=== PATIENT | male | born 1945 | race Caucasian/White ===

== ENCOUNTER 2017-12-15 08:26 | Day surgery (SDC) | payer MEDICARE, SELFPAY ==
[2017-12-02 08:57] VITALS: BMI 30.8
[2017-12-15] VITALS (16 sets, daily range): BP systolic 98–139; BP diastolic 56–89; PULSE 63–85; RESP 12–18; TEMP 36–36.9; O2SAT 92–98; BMI 30.8
[2017-12-15] MEDS: LACTATED RINGERS 1,000 ML 42 ML IV ×2 (09:06→12:36)
[2017-12-15] MEDS: PREGABALIN 75 MG CAPSULE PO (09:08)
[2017-12-15] MEDS: ACETAMINOPHEN 325 MG TABLET 975 MG PO ×3 (09:08→21:13)
[2017-12-15] MEDS: CELECOXIB 200 MG CAPSULE PO (09:08)
[2017-12-15 09:18] LABS: BUN Creatinine Ratio 22.5 (6-22); Blood Urea Nitrogen 18 mg/dL (9-20); Calcium 9.4 mg/dL (8.4-10.2); Carbon Dioxide 25 mmol/L (22-32); Chloride 104 mmol/L (98-107); Estimated Glomerular Filt Rate > 60.0 mL/min (>60); Glucose 115 mg/dL (80-110); HEMOLYSIS 25 (0-50); Potassium 4.5 mmol/L (3.4-5.1); Sodium 140 mmol/L (137-145)
--- NOTE | 2017-12-15 10:14 | PM.PREOP ---
Pre-operative Note Interval Note Pre-op Check: Yes History & Physical Reviewed by Physician and Yes Exam Performed Changes: No
[2017-12-15] MEDS: CEFAZOLIN 2 GM/100 ML FROZ.PIGGY IV ×2 (11:03→19:38)
--- NOTE | 2017-12-15 11:57 | SUR.OPER ---
Supine on padded OR bed. Pillow under head, arms secured on padded armboards <90 degree abduction. Safety belt across torso. Non-operative leg secured with tape over blanket over lower leg. Operative leg secured in DeMayo/Dante positioner. Foam padded brace at thigh of operative leg.
[2017-12-15] MEDS: BUPIVACAINE 0.25% W/ EPI VIAL 50 ML INJ (12:06)
[2017-12-15] MEDS: BUPIVACAINE LIPOSOME 266 MG/20 ML VIAL INJ (12:07)
[2017-12-15] MEDS: MORPHINE 4 MG/ML INJ SUBCUT (12:10)
--- NOTE | 2017-12-15 13:08 | DI.RAD.S_ITS ---
PROCEDURE: XR KNEE RT 1TO2V INDICATIONS: post op total knee TECHNIQUE: 2 view(s) of the knee acquired. COMPARISON: [facility] [place], CR, XR KNEE 3 VIEWS BILATERAL, 01/26/2017, 10:54. FINDINGS: Bones: Patient is status post knee joint arthroplasty. Hardware components are in expected positions. Visualized bony structures are intact. Soft tissues: Overlying postoperative changes are noted. IMPRESSION: Expected post procedure change for right knee arthroplasty. Dictated by: Emperatriz Young MD, PhD on 12/15/2017 at 13:38 Approved by: Emperatriz Young MD, PhD on 12/15/2017 at 13:38
--- NOTE | 2017-12-15 13:09 | PM.OP.1 ---
Operative Date/Time/Diagnoses Date of procedure: 12/15/17 Time of procedure: 13:00 Pre-op diagnosis: Right knee osteoarthritis Post-op diagnosis: same Procedure & Clinicians Procedure: Right total knee replacement Same procedure as scheduled: Yes Indications: The patient has had progressively worsening right knee pain with radiographic changes consistent with arthritis. Non-operative management has failed and the patient has requested total knee replacement. The risks, benefits and alternatives to surgery were discussed with the patient prior to proceeding. Risks discussed included, but were not limited to, failure to relieve pain, stiffness, infection, nerve damage, deep venous thrombosis, pulmonary embolism, stroke, coma, heart attack, permanent paralysis and , as well as the potential need for eventual revision of the prosthetic. Surgeon: Damion Steve Operational Risk Consultant: Jeanette Kim Click Yes if Unassisted: No Anesthesia Type: General, Spinal and Local Operative Notes Findings: Significant varus deformity, medial compartment wear and moderate patellofemoral osteoarthritis. Closure Type: primary Specimen(s): none sent Implants & Drains: Implants used in this procedure were manufactured by the [employer] and [employer] and included the BCS II Journey total knee replacement with a size 7 Oxinium BCS II femur, 7 non porous tibial base plate, 10 mm cross-linked polyethylene BCS II insert and a 38 mm oval Harini II patella. Applied: implant(s) Estimated Blood Loss (mL): 25 Blood products transfused: none Tourniquet time (min): 58 Procedure in detail: The patient was seen in the pre-operative area, where the patient identified the right knee as the operative site and this was marked with my initials. The patient received pre-operative antibiotics, and was taken to the operating room and placed on the operative table in the supine position. After satisfactory anesthesia, a radio time buyer out was performed. The right leg was encircled with a tourniquet about the proximal thigh, and the leg was prepared from the toes to the tourniquet with ChloroPrep in the usual fashion and draped through sterile drapes. The leg was elevated and exsanguinated with Eschmark bandage and the tourniquet inflated to 250 mmHg pressure. The knee was approached through an approximately 18 cm incision centered over the patella and carried into the knee through a medial parapatellar arthrotomy. The anterior osteophytes and soft tissues were removed. The rotational landmarks of Woods's line and the transepicondylar axis were marked on the femur with electrocautery, and intramedullary guide holes for the femur and tibia were created. The distal femoral cut was made in 6 degrees of valgus using the intramedullary guide at the primary cut setting. The proximal tibial cut was then made using the intramedullary guide, taking 9 mm of bone off the less involved side. The extension gap was checked and the rotation of the femoral component confirmed with the gap balancing system. The anterior, posterior and chamfer cuts were then made. The posterior osteophytes and soft tissues were then removed. The posterior capsule was injected with part of a mixture of 50 ml 0.25% Marcaine mixed with 20 ml Exparel and 4 mg of morphine for post-operative pain control. The remainder of this mixture was injected into the capsule and subcutaneous tissues during cement curing. The tibia was prepared with the rotation set by an extra medullary guide. Trial tibial and femoral components were then placed and the intercondylar notch cut through the femoral trial. Range of motion was 0-135 degrees, with good stability throughout the range. The patella was then cut to accommodate the patellar prosthetic. There was no need for a lateral release. The trials were then removed, and the femoral hole plugged with a bone plug. The bone was prepared with pulsatile lavage, and dried with a sponge. Cement was applied and the final prosthetics placed. Excess cement was removed during and after cement curing. After confirming there was no extruded cement posteriorly, the final tibial insert was placed. The knee was copiously irrigated and the tourniquet deflated. Hemostasis was obtained. The capsule was closed with interrupted # 2 polyester suture. The subcutaneous layer was closed with 3-0 Vicryl, and the skin with a running 3-0 V-Lock suture and SteriStrips. An Aquacel Ag dressing was applied and the patient was taken to recovery having tolerated the procedure well. Complications: none Condition: stable Disposition: PACU Plan for aftercare: The patient will be maintained on a standard total knee replacement protocol with weight bearing as tolerated. The patient will receive aspirin and sequential compression devices for DVT prophylaxis. The patient will be discharged home when safe for the home environment.
[2017-12-15] MEDS: LACTATED RINGERS 1,000 ML 125 ML IV ×2 (14:42→23:04)
[2017-12-15] MEDS: HYDROMORPHONE 0.5 MG INJ IV (14:42)
--- NOTE | 2017-12-15 15:58 | PC.NURSE ---
Post-op: Late entry Arrived to room 228 at 1400 from PACU. Awake and alert, oriented X3. Nicanor wrap and dressing to R knee C/D/I. Still numb/tingly from the spinal anesthesia, but is moving all extremities. Circulation WNL, strong pedal pulses, cap refill <2 sec. SCD's placed to BLE's. Tolerating PO's without N/V. SpO2 on RA in the mid 90's, continuous pulse ox in place. Medicated with Tylenol + 0.5 IV Dilaudid for 7/10 R knee pain, resting quietly with eyes closed at reassessment (FLACC score 0). Ice pack in place. IVF per orders, site in L hand WNL. Oriented to room and call light. Urinal at bedside. Bed alarm on, belongings in reach. Rena shift RN aware that admission still needs to be done.
--- NOTE | 2017-12-15 16:31 | PT.IPTN ---
Current Diagnoses Bilateral primary osteoarthritis of knee (12/15/17) Surgery Performed Operation Date: 12/15/17 10:15 Actual Procedures p Total Knee Arthroplasty(Right) - Damion Steve MD Order received. Spoke with his nurse who reports pt having no pain and still has numbness in surgical LE. Will hold evaluation until tomorrow.
[2017-12-15] MEDS: DOCUSATE 100 MG CAPSULE PO (21:13)
[2017-12-15] MEDS: ASPIRIN EC 81 MG TABLET PO (21:15)
[2017-12-15] MEDS: OXYCODONE IR 5 MG TABLET PO (23:04)
[2017-12-16] MEDS: hydrOXYzine pamoate 25 MG CAPSULE PO ×3 (00:41→12:42)
[2017-12-16] MEDS: OXYCODONE IR 5 MG TABLET PO ×5 (00:41→12:42)
[2017-12-16 00:50] VITALS: BP 106/58; PULSE 70; RESP 18; TEMP 36.3; O2SAT 92
[2017-12-16] MEDS: CEFAZOLIN 2 GM/100 ML FROZ.PIGGY IV (03:05)
[2017-12-16 03:20] VITALS: BP 119/71; PULSE 81; RESP 18; TEMP 36.5; O2SAT 94
[2017-12-16 05:19] LABS: Hematocrit 38.9 % (41-53); Hemoglobin 13.4 g/dL (13.5-17.5)
--- NOTE | 2017-12-16 07:41 | PM.DS.1 ---
History of Present Illness Date Patient Seen: 12/16/17 Time Patient Seen: 07:25 Chief complaint: *OPB* [id number] Narrative: The history of present illness and physical examination is contained in the chart in a previously completed dictation. Please refer to that note for this information. Discharge Providers Primary care physician: Adolph Mott MD Consults: 12/15/17 14:13 Consult to Discharge Planning Routine Comment: Consult to Physical Therapy Evaluate & Treat Comment: Physician Instructions: postop TKA protocol Discharge provider: Damion Steve MD Discharge Date: 12/16/17 Summary Discharge Diagnosis: 1. Right knee osteoarthritis 2. Mild post hemorrhagic anemia Hospital Course: Patient was admitted to the hospital and taken directly to the operating room on December 15, 2017. He underwent a right total knee replacement without difficulty. He was stable on postoperative day 1 with excellent pain control. He had not yet seen physical therapy. At the time of this dictation and is anticipated that he will make satisfactory progress with therapy to be ready for discharge today. If this turns out not to be the case the discharge orders will be put on hold. Status at Discharge Cognitive/behavioral status at discharge: At baseline. Functional status at discharge: uses cane/walker Overall status at discharge: patient is progressing back to baseline Time Spent with Patient Less than 30 minutes Exam Vital Signs (past 8 hours): - 12/16/17 00:50 12/16/17 03:20 Temperature 97.3 F L 97.7 F Pulse Rate 70 81 Respiratory Rate 18 18 Blood Pressure 106/58 L 119/71 Pulse Oximetry 92 94 Oxygen Delivery Method Room Air Oxygen Flow Rate 0 Narrative Exam Narrative: Right knee is dressed with no drainage on the bandage. Calf is soft. Light touch and motion are intact in the right lower extremity. Objective Labs Result Diagrams: 12/16/17 04:52 12/15/17 08:02 Labs: Laboratory Results - last 24 hr 12/15/17 12/16/17 08:02 04:52 Hgb 13.4 L Hct 38.9 L Sodium 140 Potassium 4.5 Chloride 104 Carbon Dioxide 25 BUN 18 Creatinine 0.80 Estimated GFR > 60.0 BUN/Creatinine Ratio 22.5 H Glucose 115 H Calcium 9.4 Radiographs reveal a well-positioned BCS II total knee prosthesis on the right. No signs of any operative complications. Discharge Plan Discharge Plan Patient Disposition: Home Discharge Med Rec/Prescriptions Prescriptions: New aspirin 81 mg Tablet,Delayed Release (Dr/Ec) 81 mg PO BID 42 Days Qty: 84 RF: 0 oxycodone 5 mg Tablet 5 mg PO Q3HR PRN (Reason: Pain, Moderate (4-6)) Qty: 60 RF: 0 hydroxyzine pamoate 25 mg Capsule 25 mg PO Q6HR PRN (Reason: Nausea) Qty: 40 RF: 0 Continue triamcinolone acetonide [Nasacort] 55 mcg Aerosol,Hopkins 1 spray INTRANASAL DAILY RF: 0 parwtcxoieqb-hrki-yhmps acid [Multi Complete with Iron] 18-400 mg-mcg Tablet 1 tab PO DAILY RF: 0 Follow up/Referrals: Damion Steve MD [Physician] - 3-5 Days Discharge Orders: Discharge (Order); Ordered 12/16/17 Ordered By: Damion Steve Provider Discharge Instructions Diet: Diet as Tolerated and Regular Activity: You may walk as tolerated. Cold/Heat Therapy: Apply ice to the knee for 15 min every hour as needed. Other treatments: You should be in physical therapy starting a couple days after surgery. If you do not have this arranged please call the office to set this up. Skin/Wound/Dressing Care Report to your healthcare provider any signs of infection, such as:: chills, fever, night sweats, increased pain and unusual drainage Dressing: Remove the Nicanor wrap 3 days postoperatively and then you may shower as normal. Keep the deeper dressing in place. If the central strip of the deeper dressing becomes wet with either water or saturated with blood please call the office. Visit Report/Discharge Packet Stand Alone Forms: Surgery Discharge Discharge Data Primary Care Provider: Adolph Mott Attending Provider: Damion Steve
[2017-12-16 08:15] VITALS: BP 103/69; PULSE 74; RESP 17; TEMP 36.7; O2SAT 93
[2017-12-16] MEDS: ASPIRIN EC 81 MG TABLET PO (09:03)
[2017-12-16] MEDS: DOCUSATE 100 MG CAPSULE PO (09:03)
[2017-12-16] MEDS: ACETAMINOPHEN 325 MG TABLET 975 MG PO (09:03)
--- NOTE | 2017-12-16 11:13 | PT.IIE ---
Current Diagnoses Bilateral primary osteoarthritis of knee (12/15/17) Surgery Performed Operation Date: 12/15/17 10:15 Actual Procedures p Total Knee Arthroplasty(Right) - Damion Steve MD Surgical History (Last Updated 12/02/17 @ 09:01 by Roya De La Torre RN) History of arthroplasty of left knee (Acute) History of total left hip arthroplasty (Acute) History of vasectomy (Acute) Hx of appendectomy (Acute) Medical History (Last Updated 12/02/17 @ 09:01 by Roya De La Torre RN) Hemorrhoids (Acute) Pneumonia (Acute) Physical Therapy Inpatient Evaluation/Re-Eval M1 PT/OT-IP Prior Functional Status Start: 12/16/17 11:40 Freq: NEEDED Status: Active Protocol: Document 12/16/17 11:13 MDD (Rec: 12/16/17 12:02 MDD [id number]) Medical Review Prior Functional Status Medical History Reviewed Yes Communication normal Mobility and Gait independent with no AD Activities of Daily Living and IADL's independent Social History Household Members spouse Living Arrangements House Number of Floors (Floors) One Floor Number of Stairs To Enter/Railing? no stairs to enter Home Environment High Toilet Walk in Shower Home Equipment Front Wheel Walker Straight Cane Hand Held Shower Employment Status Retired Additional Social History Comment Pt lives with his , Carmen, in [facility]. M2 PT-IP Current Condition Start: 12/16/17 11:40 Freq: NEEDED Status: Active Protocol: Document 12/16/17 11:13 MDD (Rec: 12/16/17 12:02 MDD [email or web address]) Physical Therapy Current Condition Current Condition Evaluation Date 12/16/17 Treatment Diagnosis s/p R TKA Onset Date 12/15/17 Weight Bearing Status Weight Bearing Status Weight Bear as Tolerated M3 PT-IP Subjective Start: 12/16/17 11:40 Freq: NEEDED Status: Active Protocol: Document 12/16/17 11:13 MDD (Rec: 12/16/17 12:02 MDD [email or web address]) Subjective Physical Therapy Visit Type Type Initial Evaluation Visit Start Time 10:48 Visit Stop Time 11:13 Total Visit Minutes 25 Number of DRESSAGE INSTRUCTOR Visits 0 Therapy Pain Assessment Pain When Pain Assessed At Rest Pain Present Pain Present Pain Reported Location Right Knee Intensity 5 Scale Used Numeric (1 - 10) Description Aching Pain Management Techniques Apply Cold M4 PT-IP Mobility and Gait Start: 12/16/17 11:40 Freq: NEEDED Status: Active Protocol: Document 12/16/17 11:13 MDD (Rec: 12/16/17 12:02 MDD [email or web address]) PT-Bed Mobility Assessment Rolling Level of Assist Independent Supine to Sit Supine to Sit Independent Sit to Supine Sit to Supine Independent Scooting Scooting to Edge of Bed Independent Scooting Up and Down in Bed Independent PT-Transfer Assessment Sit to and From Stand Sit to and from Stand Standby Assistance Equipment Transfer Assistive Device Gait Belt Front Wheeled Walker Transfers Transfer Destination Chair Transfer Ability Level of Assist Standby Assistance Gait Assessment Gait Gait Assistance Required: Standby Assistance Distance (Feet) (feet) 270 Able to Maintain Weight Bearing Status Yes During Gait Assistive Devices Assistive Device Gait Belt Front Wheeled Walker Gait Deviations General Gait Pattern Antalgic Decreased Stride Length Flexed Trunk Comments Gait Comments Step-to gait, but able to correct with cueing. PT-Balance Assessment Sitting Balance and Reactions Static Sitting Balance Ability Normal Dynamic Sitting Balance Ability Normal Standing Balance and Reactions Static Standing Balance Ability Good Dynamic Standing Balance Ability Good M5 PT-IP Objective Assessments Start: 12/16/17 11:40 Freq: NEEDED Status: Active Protocol: Document 12/16/17 11:13 MDD (Rec: 12/16/17 12:02 MDD [email or web address]) Orientation Orientation/Cognition Level of Alertness Alert Orientation Name Age Birthday Month Date Year Day of Week Place Situation Language Function Ability No Deficits Noted Safety Awareness Understands Safety Issues Memory Description No Deficits Noted Gross Range of Motion Lower Extremity ROM Assessment Within Functional Limits Strength Lower Extremity Strength Assessment Within Functional Limits Coordination Assessment Gross Coordination Gross Coordination WNL Sensation Assessment Sensation Gross Sensation WNL M6 PT-IP Treatment Start: 12/16/17 11:40 Freq: NEEDED Status: Active Protocol: Document 12/16/17 11:13 MDD (Rec: 12/16/17 12:02 MDD [email or web address]) Physical Therapy Treatment Exercises Exercises Ankle Pumps Gluteal Sets Quad Sets Heel Slides Straight Leg Raises Supine Hip Abduction Passive Knee Extension Hang Knee ROM Measurement 15-75 Education Education Provided Precautions Weight Bearing Status Post-Op Packet Safety M7 PT-IP Assessment and Plan Start: 12/16/17 11:40 Freq: NEEDED Status: Active Protocol: Document 12/16/17 11:13 MDD (Rec: 12/16/17 12:02 MDD [email or web address]) PT Summary Assessment and Plan Potential Rehabilitation Potential Excellent Status of Condition at Evaluation Stable Summary Impairments Pain ROM Progress Towards Goals Progressing Toward Goals Safe For Discharge Goals Met Assessment Summary Pt demonstrates ability to perform bed mobility and transfers with SBA today. Demonstrates safety with gait up to 270 feet. He reports understanding of therapeutic exercises to perform prior to starting outpatient PT. Goals Bed Mobility Goal Independent Transfer Goal Independent Gait Goal Independent Front Wheel Walker Gait Distance 100 Frequency of Treatment Frequency Of Treatment Discharge Treatment Plan Physical Therapy Treatment Plan Bed Mobility Training Transfer Training Gait Training Therapeutic Exercise Recommendations To Nursing Amount of Assist Needed Standby Assistance Discharge Recommendations PT Discharge Recommendations Home
[2017-12-16 11:20] VITALS: BP 118/70; PULSE 63; RESP 16; TEMP 37.1; O2SAT 94
--- NOTE | 2017-12-16 15:39 | CM.IDA ---
Discharge Planning/Care Management CM Discharge Assessment Start: 12/16/17 15:35 Freq: Status: Active Protocol: Document 12/16/17 15:35 JOSELO (Rec: 12/16/17 15:39 JOSELO [id number]) Discharge Planning Assessment Assigned Vending Mechanic JOSELO DPOA/Assigned Designee Name Carmen Dejesus, spouse Contact Information [phone] Advance Directives? Yes Advance Directives on File Yes History Provided By Patient Medical Record Prior Living Arrangements House Household Members spouse Type of transporation used prior to Drives own vehicle admit Independent with ADL's Yes Is patient alert and oriented? Yes Barriers to Discharge No Discharge Plan Home Transportation Arrangement spouse Referrals Initiated None needed Additional Comment Home w/outpt PT today, POD#1 , PT: Home Whiteboard Updated in Patient Room with Yes name and ext. # of Vending Mechanic SUGEY Van
== END 2017-12-16 12:45 | disposition home or self-care (01) ==
LOC: OR 08:35 → AC 14:40
PROVIDERS: Anesthesiology; PCP Hospitalist; Visit Provider Orthopaedic Surgery
PROC: 0SRC0JZ Replacement of Right Knee Joint with Synthetic Substitute, Open Approach (ICD-10-PCS; CPT 27447; principal; 2017-12-15 10:15)
DX: M17.11 Unilateral primary osteoarthritis, right knee (principal); Z96.652 Presence of left artificial knee joint
CPT/HCPCS: 27447; 36415; 73560; 80048; 85014; 85018; 94762; 97161; C1776; C9290; J0690; J1100; J1170; J2250; J2270; J2274; J2405; J2704; J3010

== ENCOUNTER → 2019-11-09 08:16 | Outpatient (CLI) | payer MEDICARE, SELFPAY ==
[2017-12-15 16:39] VITALS: BMI 30.8
[2019-11-09 09:51] LABS: Aspartate Aminotransferase 26 IU/L (17-59); BUN Creatinine Ratio 15.4 (6-22); Blood Urea Nitrogen 12 mg/dL (9-20); Calcium 9.7 mg/dL (8.4-10.2); Carbon Dioxide 29 mmol/L (22-32); Chloride 98 mmol/L (98-107); Cholesterol 147 mg/dL (140-199); Estimated Glomerular Filt Rate > 60.0 mL/min (>60); Glucose 105 mg/dL (80-110); HDL Cholesterol 38 mg/dL (40-60); HEMOLYSIS < 15 (0-50); LDL Cholesterol Calculated 89 mg/dL (<100); Potassium 5.3 mmol/L (3.4-5.1); Sodium 134 mmol/L (137-145); Triglycerides 99 mg/dL (35-150)
[2019-11-09 10:22] LABS: Prostate Specific Antigen 0.441 ng/mL (0.10-4.00)
== END ==
PROVIDERS: PCP Internal Medicine; Referring Provider Internal Medicine; Visit Provider Internal Medicine
DX: E78.2 Mixed hyperlipidemia (principal); N40.0 Benign prostatic hyperplasia without lower urinary tract symptoms
CPT/HCPCS: 36415; 80048; 80061; 84153; 84450

== ENCOUNTER → 2020-02-07 11:44 | Outpatient (CLI) | payer MEDICARE, SELFPAY ==
[2017-12-15 16:39] VITALS: BMI 30.8
[2020-02-08 06:48] LABS: COVID19 Sendout Not Detected (Not Detect)
== END ==
PROVIDERS: PCP Internal Medicine; Visit Provider Physician Assistant
DX: Z01.812 Encounter for preprocedural laboratory examination (principal)
CPT/HCPCS: 87635

== ENCOUNTER 2020-02-10 08:11 | Day surgery (SDC) | payer MEDICARE, SELFPAY ==
[2017-12-15 16:39] VITALS: BMI 30.8
[2020-02-10] MEDS: SODIUM CHLORIDE 0.9% 1,000 ML 200 ML IV (08:27)
[2020-02-10 08:37] VITALS: BP 146/95; PULSE 63; RESP 18; TEMP 36.5; O2SAT 99; BMI 32.1
[2020-02-10 09:18] VITALS: BMI 32.1
--- NOTE | 2020-02-10 09:29 | PM.HP.1 ---
History of Present Illness History of Present Illness Date Patient Seen: 02/10/20 Time Patient Seen: 09:30 Chief complaint: SDC Narrative: This is a 74-year-old man with history of prior colonoscopies at age 52 at age 62. He says that he has never had any polyps found. He says he has occasional rectal bleeding when he eats something that he should. He denies any unexplained abdominal pain, unexplained weight loss, or melena. He denies any other significant health problems, and says he is quite healthy. ROS: Thirteen system review is otherwise negative other than as mentioned below and in HPI. PE: GENERAL: Well groomed and cooperative. Appears stated age. Answers questions promptly and appropriately. Vital signs noted. HENT: Normocephalic, atraumatic. Hearing intact. EYES: Conjunctiva pink, sclera white, no periorbital swelling. CARDIOVASCULAR: Regular rate. No pedal edema. RESPIRATORY: Non-tachypneic, breathing comfortably on room air. GASTROINTESTINAL: Abdomen soft and non-distended GENITALURINARY: No flank tenderness. MUSCULOSKELETAL: Equal tone and mass bilaterally. SKIN: Warm, dry, soft, appropriate color for ethnicity. No other lesions, rashes, or wounds. NEURO: Alert and Oriented X 3. No gross sensory deficits, or cognitive issues. PSYCH: Appropriate affect and mood. Patient History Medical History Hemorrhoids (Acute) Pneumonia (Acute) Surgical History History of arthroplasty of left knee (Acute) History of total left hip arthroplasty (Acute) History of vasectomy (Acute) Hx of appendectomy (Acute) Family & Social History Social History: household members spouse Tobacco & Substance use: Tobacco type cigarettes,cigars Smoking Status Former smoker alcohol intake current alcohol intake frequency a few times a week Substance Use Type does not use Meds Home Medications and Allergies Home Medications Medication Instructions Recorded Confirmed Type Multi Complete with Iron 1 tab PO DAILY 12/15/17 02/10/20 History triamcinolone acetonide [Nasacort] 1 spray INTRANASAL DAILY 12/15/17 02/10/20 History hydroxyzine pamoate 25 mg PO Q6HR PRN #40 cap 12/16/17 02/10/20 Rx aspirin [Aspirin Childrens] 81 mg PO DAILY 02/10/20 02/10/20 History hydrocortisone [Proctozone-HC] See Rx Instructions .ROUTE .COMPLEX 02/10/20 02/10/20 History Allergies Allergy/AdvReac Type Severity Reaction Status Date / Time No Known Drug Allergies Allergy Verified 02/10/20 08:27 Exam Vital Signs (past 8 hours): - 02/10/20 08:37 Temperature 97.7 F Pulse Rate 63 Respiratory Rate 18 Blood Pressure 146/95 H Pulse Oximetry 99 Oxygen Delivery Method Room Air Assessment & Plan Assessment and plan (1) At average risk for colon cancer: Status: Acute Assessment & Plan narrative: Risks and benefits of screening colonoscopy and possible polypectomy were discussed with the patient including risk of bleeding, perforation, need for additional procedures, risks of anesthesia. The patient desires to proceed with the colonoscopy procedure. COVID-19 COVID-19 status: Negative Result date/Date tested (Pos, Neg/Pending): 02/07/20 Time Spent With Patient Time with patient: 15-24 minutes Quality VTE Deep Vein Thrombosis/Pulmonary Embolism Present on Admission: No
[2020-02-10] MEDS: fentaNYL 250 MCG/5 ML INJ IV (09:32)
[2020-02-10] MEDS: MIDAZOLAM 5 MG/5 ML VIAL IV (09:32)
--- NOTE | 2020-02-10 09:32 | P.OP.ENDO_ITS ---
Operative Date/Time/Diagnoses Date of procedure: 02/10/20 Time of procedure: 09:32 Pre-op diagnosis: Average risk for colon cancer Post-op diagnosis: other (Diverticulosis, no polyps) Procedure & Clinicians Study performed: Colonoscopy Procedural sedation performed by the endoscopist Indications: Average risk for colon cancer, 10 years since last screening colonoscopy Surgeon: Radha Yoder Procedure Notes SCOAP/Timeout: Performed Procedure in detail: The patient was brought to the room and placed in left lateral decubitus position with all bony prominences padded. A time-out was performed and then the patient was given procedural sedation starting with 4 mg of Versed and 100 mcg of fentanyl. Vitals were monitored throughout the procedure and remained stable. Once adequately sedated, the procedure was begun. A rectal exam was performed revealing no abnormalities. The colonoscope was then introduced to the rectum and advanced to the cecum in the usual fashion. The cecum was identified by the appendiceal orifice, the mucosal tri- fold, and the ileocecal valve. The scope was then retracted while rotating side to side and examining each mucosal fold. Moderate diverticulosis was seen through the descending and sigmoid colon. At the conclusion of the procedure retroflexion was performed and small grade 1-2 internal hemorrhoids without stigmata of bleeding were seen. The scope was then withdrawn from the rectum the procedure was concluded. The patient tolerated the procedure well and was transferred to the PACU in stable condition. Scope withdrawal time: 8 Sedation minutes: 24 Findings: diverticulosis Specimen(s): none sent Complications: none Impression: Moderate diverticulosis in the descending and sigmoid colon. No polyps Post-procedure Recommendations: Colonscopy in 10 years (If healthy enough for colonoscopy procedure at that time) Follow up: as needed Disposition: PACU
[2020-02-10 10:02] VITALS: BP 107/66; PULSE 69; RESP 13; TEMP 36; O2SAT 95
[2020-02-10 10:07] VITALS: BP 117/82; PULSE 66; RESP 17; TEMP 36.2; O2SAT 94
[2020-02-10 10:13] VITALS: BP 114/73; PULSE 62; RESP 15; TEMP 37.1; O2SAT 95
[2020-02-10 10:20] VITALS: BP 120/80; PULSE 59; RESP 16; TEMP 36.7; O2SAT 95
== END 2020-02-10 10:51 | disposition home or self-care (01) ==
PROVIDERS: PCP Internal Medicine; Referring Provider Surgery; Visit Provider Surgery
PROC: 0DJD8ZZ Inspection of Lower Intestinal Tract, Via Natural or Artificial Opening Endoscopic (ICD-10-PCS; CPT 45378; principal; 2020-02-10 09:15)
DX: Z12.11 Encounter for screening for malignant neoplasm of colon (principal); K57.30 Diverticulosis of large intestine without perforation or abscess without bleeding; K64.0 First degree hemorrhoids
CPT/HCPCS: G0121; 99152; J2250; J3010

== ENCOUNTER → 2020-11-12 08:17 | Outpatient (CLI) | payer MEDICARE, SELFPAY ==
[2017-12-15 16:39] VITALS: BMI 30.8
[2020-11-12 09:44] LABS: Aspartate Aminotransferase 23 IU/L (17-59); BUN Creatinine Ratio 20.3 (6-22); Blood Urea Nitrogen 16 mg/dL (9-20); Calcium 9.1 mg/dL (8.4-10.2); Carbon Dioxide 26 mmol/L (22-32); Chloride 102 mmol/L (98-107); Cholesterol 164 mg/dL (140-199); Estimated Glomerular Filt Rate > 60.0 mL/min (>60); Glucose 103 mg/dL (80-110); HDL Cholesterol 49 mg/dL (40-60); HEMOLYSIS < 15 (0-50); LDL Cholesterol Calculated 105 mg/dL (<100); Potassium 4.8 mmol/L (3.4-5.1); Sodium 131 mmol/L (137-145); Triglycerides 48 mg/dL (35-150)
[2020-11-12 10:09] LABS: Prostate Specific Antigen 0.431 ng/mL (0.10-4.00)
[2020-11-13 05:37] LABS: PSA, Total 0.5 ng/mL (0.0-4.0)
== END ==
PROVIDERS: PCP Internal Medicine; Referring Provider Internal Medicine; Visit Provider Internal Medicine
DX: E78.2 Mixed hyperlipidemia (principal); N40.0 Benign prostatic hyperplasia without lower urinary tract symptoms
CPT/HCPCS: 36415; 80048; 80061; 84153; 84154; 84450

== ENCOUNTER → 2023-02-27 06:46 | Outpatient (CLI) | payer MEDICARE, SELFPAY ==
[2017-12-15 16:39] VITALS: BMI 30.8
[2023-02-27 07:52] LABS: Hemoglobin 13.8 g/dL (13.5-17.5); Mean Corpuscular HGB Conc 34.4 % (30-36); Mean Corpuscular Hemoglobin 30.6 PG (26-34); Mean Corpuscular Volume 88.9 fL (80-100); Platelet Count 156 X10^3/uL (150-400); Red Cell Distribution Width 13.2 % (11.6-14.8)
[2023-02-27 08:02] LABS: Alanine Aminotransferase 27 IU/L (<50); Albumin 4.1 g/dL (3.5-5.0); Albumin Globulin Ratio 1.8 (1.0-2.8); Alkaline Phosphatase 44 U/L (38-126); Aspartate Aminotransferase 24 IU/L (17-59); BUN Creatinine Ratio 19.7 (6-22); Bilirubin Total 0.7 mg/dL (0.2-1.3); Blood Urea Nitrogen 15 mg/dL (9-20); Calcium 9.4 mg/dL (8.4-10.2); Carbon Dioxide 26 mmol/L (22-32); Chloride 98 mmol/L (98-107); Cholesterol 194 mg/dL (140-199); Estimated Glomerular Filt Rate > 60 mL/min (>60); Globulin 2.3 g/dL (1.7-4.1); Glucose 112 mg/dL (80-110); HDL Cholesterol 49 mg/dL (40-60); HEMOLYSIS < 15 (0-50); LDL Cholesterol Calculated 127 mg/dL (<100); Potassium 4.6 mmol/L (3.4-5.1); Sodium 130 mmol/L (137-145); Total Protein 6.4 g/dL (6.3-8.2); Triglycerides 90 mg/dL (35-150)
[2023-02-27 08:32] LABS: Prostate Specific Antigen 0.507 ng/mL (0.10-4.00); TSH w/ Reflex to FT4 1.37 uIU/mL (0.47-4.68)
== END ==
PROVIDERS: PCP Internal Medicine; Referring Provider Internal Medicine; Visit Provider Internal Medicine
DX: E78.2 Mixed hyperlipidemia (principal); N40.0 Benign prostatic hyperplasia without lower urinary tract symptoms; M15.9 Polyosteoarthritis, unspecified
CPT/HCPCS: 36415; 80053; 80061; 84153; 84443; 85027